=== PATIENT | female | born 2000 ===

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

== ENCOUNTER 2018-02-06 09:49 | Emergency (ER) | payer MEDICAID, OTHER ==
[2018-02-06 09:56] VITALS: BP 127/80; PULSE 88; RESP 18; TEMP 98.3; O2SAT 98
--- NOTE | 2018-02-06 10:29 | C.PDOC ---
History Of Present Illness 17 yo female c/o left ankle pain since she woke up this morning (3 hours). She denies injuring the area but notes she was on her feet all day yesterday. She did not try pain any pain medication. Denies fever, sob, travel, calf pain or swelling, change in sensation, change in skin color, or direct trauma. Time Seen by Provider: 02/06/18 10:10 Chief Complaint (Nursing): Lower Extremity Problem/Injury History Per: Patient History/Exam Limitations: no limitations Onset/Duration Of Symptoms: Hrs Current Symptoms Are (Timing): Still Present Past Medical History Vital Signs: Last Vital Signs Temp 98.3 F 02/06/18 09:54 Pulse 88 02/06/18 09:54 Resp 18 02/06/18 09:54 BP 127/80 02/06/18 09:54 Pulse Ox 98 02/06/18 09:54 Family History: States: Unknown Family Hx - Social History Hx Alcohol Use: No Hx Substance Use: No Review Of Systems Constitutional: Negative for: Fever Cardiovascular: Negative for: Chest Pain Respiratory: Negative for: Shortness of Breath Musculoskeletal: Positive for: Other (left ankle) Neurological: Negative for: Weakness, Numbness Physical Exam - Physical Exam Appears: Well, Non-toxic, No Acute Distress Skin: Normal Color, Warm, Dry Head: Atraumatic, Normacephalic Eye(s): bilateral: Normal Inspection, PERRL, EOMI Nose: Normal Oral Mucosa: Moist Neck: Normal, Normal ROM, Supple Chest: Symmetrical Respiratory: No Accessory Muscle Use Back: Normal Inspection Extremity: Normal ROM, Tenderness ((+) TTP to the lateral ankle with no noticable swelling), No Calf Tenderness, Capillary Refill (< 2 sec) Extremity: Bilateral: Atraumatic, No Pedal Edema, Normal Color And Temperature, Normal ROM Pulses: Left Dorsalis Pedis: Normal, Right Dorsalis Pedis: Normal Neurological/Psych: Oriented x3, Normal Speech, Normal Motor, Normal Sensation ED Course And Treatment O2 Sat by Pulse Oximetry: 98 Progress Note: Ice and motrin given. Aircast and jesika wrap applied. No XR indicated at this time, no trauma. No evidence of fx or dislocation. Instructed RICE and follow up with ortho in 1-2 days. Disposition - Disposition Referrals: Dayday Spence MD [Staff Provider] - Disposition: HOME/ ROUTINE Disposition Time: 10:40 Condition: STABLE Additional Instructions: Rest, ice and elevate the area. Follow up with the bone doctor in 1-2 days. Return to ER if symptoms persist or worsen. Prescriptions: Ibuprofen [Motrin] 600 mg PO Q6 PRN #20 tab PRN Reason: Pain, Mild (1-3) Instructions: Ankle Sprain (DC) - Clinical Impression Clinical Impression: Ankle sprain
== END 2018-02-06 10:59 | disposition home or self-care (01) ==
LOC: C.ER 09:49
DX: S93.402A Sprain of unspecified ligament of left ankle, initial encounter (principal); X58.XXXA Exposure to other specified factors, initial encounter

== ENCOUNTER 2018-05-01 06:25 | Emergency (ER) | payer MEDICAID ==
[2018-05-01 06:36] VITALS: RESP 16
[2018-05-01] MEDS ORDERED: Sodium Chloride 0.9% 1,000 ML IV ONE (07:11)
--- NOTE | 2018-05-01 07:17 | C.PDOC ---
History Of Present Illness 18 year old female presents to the ED for evaluation of frontal dull headache that started 1 day ago. The patient notes she woke up with the headache. Reports no prior history of headaches. She denies fever, chillls, vomiting, nausea, and any other associated symptoms. Time Seen by Provider: 05/01/18 07:04 Chief Complaint (Nursing): Headache History Per: Patient History/Exam Limitations: no limitations Onset/Duration Of Symptoms: Hrs, Gradual Current Symptoms Are (Timing): Better Severity: Moderate Pain Scale Rating Of: 5 Quality: Dull Preceeding Symptoms: denies: Visual Disturbances Associated Symptoms: denies: Photophobia, Blurred Vision, Vomiting, Extremity Weakness Recent travel outside of the [place]: No Past Medical History Reviewed: Historical Data, Nursing Documentation, Vital Signs Vital Signs: Last Vital Signs Temp 97.8 F 05/01/18 06:32 Pulse 76 05/01/18 06:32 Resp 16 05/01/18 06:32 BP 112/70 05/01/18 06:32 Pulse Ox 100 05/01/18 06:32 - Medical History PMH: No Chronic Diseases Denies: HTN (not taking meds), Hyperlipidemia Family History: States: Unknown Family Hx - Social History Hx Alcohol Use: No Hx Substance Use: No Review Of Systems Constitutional: Negative for: Fever Eyes: Negative for: Pain ENT: Negative for: Ear Pain Cardiovascular: Negative for: Palpitations, Orthopnea, Edema Respiratory: Negative for: Cough, Shortness of Breath Gastrointestinal: Negative for: Nausea Genitourinary: Negative for: Dysuria Musculoskeletal: Negative for: Neck Pain Neurological: Positive for: Headache. Negative for: Weakness Psych: Negative for: Anxiety, Psychosis, Withdrawal Physical Exam - Physical Exam Appears: Well, In Acute Distress Skin: Normal Color Head: Atraumatic, Normacephalic Eye(s): bilateral: Normal Inspection, PERRL, EOMI Ear(s): Bilateral: Normal Nose: Normal Oral Mucosa: Moist Tongue: Normal Appearing Lips: Normal Appearing Throat: Normal Neck: Normal, Normal ROM Lymphatic: Deferred Chest: Symmetrical Cardiovascular: Rhythm Regular Respiratory: Normal Breath Sounds Gastrointestinal/Abdominal: Normal Exam Back: Normal Inspection Extremity: Bilateral: Atraumatic, No Pedal Edema Pulses: Left Carotid: Normal, Right Carotid: Normal Neurological/Psych: Oriented x3 Gait: Steady ED Course And Treatment - Laboratory Results Result Diagrams: 05/01/18 07:55 05/01/18 07:55 Lab Interpretation: Normal Urine POC: Negative O2 Sat by Pulse Oximetry: 100 (RA) Pulse Ox Interpretation: Normal Progress Note: Headche resolved, no signs of CVA, meningitis. Will recomend CT head if headache persist. Reevaluation Time: 08:30 Reassessment Condition: Improved Medical Decision Making Medical Decision Making: Initial plan: -Blood sent -Toradol -Reglan -Urine HCG -Urinalysis Disposition Counseled Patient/Family Regarding: Studies Performed, Diagnosis, Need For Fol lowup, Rx Given - Disposition Referrals: Rashard Livingston MD [Medical Doctor] - Disposition: HOME/ ROUTINE Disposition Time: 08:32 Condition: STABLE Prescriptions: Acetaminophen/Butalbital/Caf [Fioricet] 1 tab PO TID 10 Days tab Instructions: Headache, Adult (DC) Forms: [facility] (Portuguese), General Discharge Instructions - POA Present On Arrival: None - Clinical Impression Clinical Impression: Headache - Scribe Statement The provider has reviewed the documentation as recorded by the Scribe (Krystyna Coelho) Provider Attestation: All medical record entries made by the Scribe were at my direction and personally dictated by me. I have reviewed the chart and agree that the record accurately reflects my personal performance of the history, physical exam, medical decision making, and the department course for this patient. I have also personally directed, reviewed, and agree with the discharge instructions and disposition.
[2018-05-01] MEDS ORDERED: Sodium Chloride 0.9% 1,000 ML ONE (07:26)
[2018-05-01 08:12] LABS: BASO % 0.3 % (0.0-2.0); EOS # 0.1 K/uL (0.0-0.7); EOS % 1.4 % (0.0-4.0); HEMOGLOBIN 14.3 g/dL (11.0-16.0); LYMPH % 24.1 % (20.0-40.0); MEAN CELL VOLUME 90.2 fL (81.0-99.0); MEAN CORPUSCULAR HEMOGLOBIN 30.6 pg (27.0-31.0); MEAN CORPUSCULAR HGB CONC 33.9 g/dL (33.0-37.0); MEAN PLATELET VOLUME 10.1 fL (7.2-11.7); MONO # 0.4 K/uL (0.0-0.8); MONO % 5.5 % (0.0-10.0); NEUT # 5.6 K/uL (1.8-7.0); NEUT % 68.7 % (50.0-75.0); RBC 4.66 Mil/uL (3.80-5.20); RED CELL DISTRIBUTION WIDTH 12.8 % (11.5-14.5); WHITE BLOOD COUNT 8.1 K/uL (4.8-10.8)
[2018-05-01 08:16] LABS: BLOOD UREA NITROGEN 10 mg/dL (7-17); CALCIUM 9.4 mg/dl (8.6-10.4); GFR NON-AFRICAN AMERICAN > 60
[2018-05-01 08:17] LABS: SQUAMOUS EPITHIAL 3 /hpf (0-5); URINE BACTERIA MANY (<OCC); URINE BILIRUBIN NEGATIVE (NEGATIVE); URINE BLOOD NEGATIVE (NEGATIVE); URINE CLARITY Hazy (Clear); URINE COLOR Yellow (YELLOW); URINE GLUCOSE (UA) NORMAL (Normal); URINE LEUKOCYTE ESTERASE NEG Leu/uL (Negative); URINE PROTEIN NEGATIVE (NEGATIVE); URINE UROBILINOGEN NORMAL mg/dL (0.2-1.0)
[2018-05-01 08:53] VITALS: BP 112/65; PULSE 79; TEMP 97.9; O2SAT 98
== END 2018-05-01 08:53 | disposition home or self-care (01) ==
LOC: C.ER 06:25
DX: R51 Headache (principal)
CPT/HCPCS: 80048; 81001; 81025; 85025; 96361; 96374; 96375; 99285; J1885; J2765; J7030